=== PATIENT | male | born 1955 | race Caucasian/White ===

== ENCOUNTER 2020-06-07 14:25 | Emergency (ER) | payer BC, OTHER ==
[~2020-06-07] VITALS: Ht 172.7 cm; Wt 63.5 kg
[~2020-06-07 14:25] MED LIST: [UNRECOGNIZED DRUG - OTHER] PO
[2020-06-07 15:04] VITALS: BP_SYST 143
--- NOTE | 2020-06-07 15:08 | NUR ---
SENT TO [facility]
[2020-06-07 15:50] LABS: BASOPHILS % (AUTO) 0.4 % (0.0-2.0); HEMATOCRIT 41.8 % (36-54); HEMOGLOBIN 13.4 g/dL (14.0-18.0); LYMPHOCYTES # (AUTO) 0.7 K/uL (1.0-5.5); LYMPHOCYTES % (AUTO) 7.4 % (20.5-51.5); MEAN CORPUSCULAR HEMOGLOBIN 27 pg (27-31); MEAN CORPUSCULAR HGB CONC 32 % (32-36); MEAN CORPUSCULAR VOLUME 85 fL (79.0-98.0); MONOCYTES # (AUTO) 0.2 K/uL (0.0-1.0); MONOCYTES % (AUTO) 2.6 % (1.7-9.3); NEUTROPHILS # (AUTO) 8.5 K/uL (1.8-7.7); NEUTROPHILS % (AUTO) 89.6 % (40.0-70.0); PLATELET COUNT (AUTO) 230 K/uL (130-430); RED BLOOD CELL COUNT(AUTO) 4.95 MIL/uL (4.2-6.2); WHITE BLOOD COUNT (AUTO) 9.5 K/uL (4.8-10.8)
[2020-06-07 16:05] LABS: CALCIUM 9.4 mg/dL (8.4-11.0); CREATININE 1.09 mg/dL (0.55-1.30)
[2020-06-07 16:10] LABS: TOTAL BILIRUBIN 0.6 mg/dL (0.0-1.0)
[2020-06-07 17:46] LABS: BILIRUBIN,URINE 1+ (NEGATIVE); BLOOD, URINE NEGATIVE (NEGATIVE); CLARITY/URINE CLEAR (CLEAR); COLOR,URINE YELLOW (YELLOW); GLUCOSE,URINE NEGATIVE (NEGATIVE); KETONES,URINE 3+ (NEGATIVE); LEUKOCYTE ESTERASE ,URINE NEGATIVE (NEGATIVE); NITRITE, URINE NEGATIVE (NEGATIVE); PROTEIN URINE TRACE (NEGATIVE); UROBILINOGEN,URINE 0.2 (0.2-1.0)
[2020-06-07 17:54] LABS: BACTERIA,URINE FEW /HPF (None Seen); MUCUS,URINE 1+ /LPF (None Seen); RBC,URINE 0-3 /HPF (0-3)
--- NOTE | 2020-06-07 18:09 | NUR ---
placed in [facility] chair
--- NOTE | 2020-06-07 18:11 | NUR ---
PATIENT COMPLAINING OF ACUTE EPIGASTRIC PAIN WITH NAUSEA SINCE TODAY. PAIN IS NON RADIAITNG. PAIN 9/10. PATIENT REPORTS THAT HE HAS BEEN BINGE DRINKING THIS WEEKEND AND REPORTS DRINKING 12 BEERS. NO OTHER COMPLAINTS/INJURIES PER PATIENT OR NOTED. WILL CONTINUE TO MONITOR.
--- NOTE | 2020-06-07 18:12 | NUR ---
LOTTIE Cyr at bedside examining patient.
--- NOTE | 2020-06-07 18:26 | NUR ---
Medicated per MD orders
--- NOTE | 2020-06-07 18:27 | NUR ---
ER Dr. Jernigan at bedside discussing results
[2020-06-07] MEDS ORDERED: MAG HYDROX/AL HYDROX/SIMETH 30 ML, DICYCLOMINE HCL 20 MG, LIDOCAINE VISCOUS 2% 15ML (PO... PO ONE ×3 (18:30)
[2020-06-07] MEDS ORDERED: CIPROFLOXACIN HCL 500 MG TABLET PO ONE (18:30)
[2020-06-07] MEDS ORDERED: metroNIDAZOLE 500 MG TABLET PO ONE (18:30)
[2020-06-07 18:43] VITALS: BP_SYST 136
--- NOTE | 2020-06-07 18:43 | NUR ---
Patient given written and verbal discharge instructions and verbalizes understanding. ER MD discussed with patient the results and treatment provided. Patient in stable condition. ID arm band removed. Rx of CIPRO AND FLAGYL given. Patient educated on pain management and to follow up with PMD. Pain Scale 0/10 Opportunity for questions provided and answered. Medication side effect fact sheet provided.
== END 2020-06-07 18:43 | disposition home or self-care (01) ==
LOC: SED 14:25
DX: K52.9 Noninfective gastroenteritis and colitis, unspecified (principal)
CPT/HCPCS: 36415; 74176; 76700; 80053; 81000; 83690; 85025; 99285; J2001